=== PATIENT | female | born 1980 | race Asian ===

== ENCOUNTER 2019-01-13 12:50 | Day surgery (SDC) | payer OTHER ==
[2019-01-13] VITALS (7 sets, daily range): BP systolic 95–107; BP diastolic 61–95
[~2019-01-13] VITALS: Ht 160 cm; Wt 55.6 kg
[2019-01-13] MEDS ORDERED: famotidine 20mg tablet PO ONE (13:44)
[2019-01-13] MEDS ORDERED: ceFOXitin 2 GM ADDvantage bag 100 ML IV ONE (13:44)
[2019-01-13] MEDS ORDERED: ringers solution, lacted 1,000 ML IV SCH (13:44)
[2019-01-13 14:01] LABS: BASOPHILS # (AUTO) 0.1 X10'3 (0-0.2); BASOPHILS % (AUTO) 1.1 % (0-1); EOSINOPHILS # (AUTO) 0.2 X10'3 (0-0.9); EOSINOPHILS % (AUTO) 2.8 % (0-6); MEAN CORPUSCULAR HEMOGLOBIN 30.5 PG (27.0-31.0); MEAN CORPUSCULAR HGB CONC 33.9 g/dL (33.0-36.5); MEAN CORPUSCULAR VOLUME 89.9 FL (78-98); MONOCYTES # (AUTO) 0.4 X10'3 (0-0.9); MONOCYTES % (AUTO) 6.6 % (2-12); NEUTROPHILS # (AUTO) 3.7 X10'3 (1.8-7.7); NEUTROPHILS % (AUTO) 57.5 % (42-75); PRE OP HEMATOCRIT 41.3 % (35.0-45.0); PRE OP PLATELET COUNT 338 X10'3 (140-440); RED CELL DISTRIBUTION WIDTH 13.6 % (11.5-14.5)
[2019-01-13] MEDS ORDERED: oxyCODONE/APAP 5-325mg tablet PO ONE (14:20)
[2019-01-13] MEDS ORDERED: methylergonovine maleate 0.2mg/ml amp ONE (14:34)
[2019-01-13] MEDS ORDERED: sevoflurane 250ml liquid IH ONE (15:22)
[2019-01-13] MEDS ORDERED: dexamethasone sod phosphate 10mg/ml inj ONE (15:22)
[2019-01-13] MEDS ORDERED: fentaNYL/PF 50MCG/1 ML 2ML syringe ONE (15:32)
[2019-01-13] MEDS ORDERED: LIDOcaine 1%/PF 5ML 10 MG/ML VIAL ONE (15:36)
[2019-01-13] MEDS ORDERED: midazolam 2 mg/2 ml injection ONE (15:36)
[2019-01-13] MEDS ORDERED: propofol inj 20 ML IV ONE (15:36)
[2019-01-13] MEDS ORDERED: ondansetron/PF 4mg/2ml inj ONE (15:43)
[2019-01-13] MEDS ORDERED: acetaminophen 1,000mg/100ml IV 100 ML IV ONE (15:43)
--- NOTE | 2019-01-13 16:19 | NUR ---
Received from OR via [facility] , accompanied by Anesthesiologist LOCO and report given by Anesthesiolgist. PATIENT WITH 20G PIV IN RIGHT AC RUNNING LR AT 100. DENIES PAIN AT THIS TIME. PATIENT WITH VS. 10L MASK ON WITH 100% SATURATIONS. NO JOSE ALBERTO PAD PRESENT Addendum: 01/13/19 at 1624 by Bradford Washington RN, RN Amended: Links added.
--- NOTE | 2019-01-13 17:20 | NUR ---
ALL DC CRITERIA HAS BEEN MET. IV TAKEN OUT WITHOUT COMPLICATIONS. ALL INSTRUCTIONS COVERED AND ALL QUESTIONS ANSWERED. DRESSINGS CDI. OUT VIA WHEELCHAIR TO PERSONAL VEHICLE WHERE PATIENT WAS SECURED IN AND DRIVEN HOME BY FAMILY. Addendum: 01/13/19 at 1720 by Bradford Washington RN, RN Amended: Links added.
== END 2019-01-13 16:59 | disposition home or self-care (01) ==
LOC: PAS 12:50
PROVIDERS: ATTEND Obstetrics & Gynecology
DX: O03.4 Incomplete spontaneous abortion without complication (principal); E03.9 Hypothyroidism, unspecified; Z88.8 Allergy status to other drugs, medicaments and biological substances; Z79.899 Other long term (current) drug therapy
CPT/HCPCS: 36415; 59812; 85025; 86870; 86885; 86900; 86901; 86902; 86905; J0131; J0694; J1100; J2210; J2250; J2405; J2704; J3010; A4618; A6258; J7120

== ENCOUNTER 2024-06-09 12:57 | Outpatient (CLI) | payer OTHER | END 2024-06-09 23:59 | disposition home or self-care (01) | LOC: LAB 12:57 | PROVIDERS: ATTEND Surgery | DX: N61.0 Mastitis without abscess (principal) | CPT/HCPCS: 87070; 87075 ==